=== PATIENT | male | born 1985 | race Caucasian/White ===

== ENCOUNTER → 2020-05-22 11:14 | Outpatient (BNVA) | payer OTHER, SELFPAY | PROVIDERS: PCP Internal Medicine; Visit Provider Surgery | DX: K64.8 Other hemorrhoids (principal); K64.4 Residual hemorrhoidal skin tags; M62.08 Separation of muscle (nontraumatic), other site | CPT/HCPCS: 46600; 99203 ==

== ENCOUNTER → 2020-07-30 10:09 | Outpatient (BNVA) | payer OTHER, SELFPAY | PROVIDERS: PCP Internal Medicine; Visit Provider Internal Medicine | DX: E88.01 Alpha-1-antitrypsin deficiency (principal); F17.200 Nicotine dependence, unspecified, uncomplicated | CPT/HCPCS: 99212 ==

== ENCOUNTER 2022-05-13 11:11 | Outpatient (REF) | payer OTHER, SELFPAY ==
[2022-05-13 13:44] LABS: Appearance Urine Clear; Color Urine Yellow; Glucose Urine UA Negative (Negative); Leukocyte Esterase Urine Negative (Negative); Nitrite Urine Negative (Negative); Specific Gravity - Urine 1.025 (1.005-1.025); Urine Blood Negative (Negative); Urine Ketones Negative (Negative); Urine Protein Negative (Neg-Trace)
[2022-05-13 18:23] LABS: CT PCR NOT DETECTED (Not Detect.); NG PCR NOT DETECTED (Not Detect.)
== END 2022-05-13 11:12 | disposition home or self-care (01) ==
LOC: HO.10HDL 11:11
PROVIDERS: Visit Provider Internal Medicine
DX: R30.0 Dysuria (principal); Z11.8 Encounter for screening for other infectious and parasitic diseases; Z11.3 Encounter for screening for infections with a predominantly sexual mode of transmission
CPT/HCPCS: 81003; 87086; 87491; 87591

== ENCOUNTER 2022-05-14 10:53 | Outpatient (REF) | payer OTHER, SELFPAY ==
[2022-05-14 14:37] LABS: Syphilis Screen Nonreactive (Nonreactive)
[2022-05-17 08:18] LABS: HIV AB/AG Nonreactive (Nonreactive); HIV Num 1 0.06 S/CO (0.00-0.99); ~Hepatitis C Antibody Nonreactive (Nonreactive)
== END 2022-05-14 10:54 | disposition home or self-care (01) ==
LOC: HO.10HDL 10:53
PROVIDERS: Visit Provider Internal Medicine
DX: Z11.3 Encounter for screening for infections with a predominantly sexual mode of transmission (principal); Z11.4 Encounter for screening for human immunodeficiency virus [HIV]
CPT/HCPCS: 36415; 86780; 86803; 87389

== ENCOUNTER 2023-12-22 13:34 | Outpatient (AMB) | payer OTHER, SELFPAY ==
[2023-12-22 13:39] VITALS: PULSE 74; O2SAT 98; BMI 27.4
--- NOTE | 2023-12-22 13:39 | A.OFFVIS_ITS ---
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 The patient is a 30-year-old gentleman with a known history of alpha-1 antitrypsin deficiency. Apparently his mom had alpha-1 antitrypsin deficiency and developed liver failure. She was being taken care of [facility]. She developed liver cirrhosis and she ended up dying. The patient unfortunately has been smoking cigarettes and also smoking marijuana. He smokes about half a pack a day. He has been having increasing shortness of breath. Sometimes he also has some nagging discomfort on his left lung. He is very concerned about his history of alpha-1 trypsin and he is concerned that he is developing progressive disease. He denies any fevers or chills or night sweats. The patient did have pulmonary function studies back in 2019 which I personally reviewed demonstrating no evidence of any restrictive nor obstructive ventilatory defects. He also had a chest for back in 2019 which was completely normal. Patient also had alpha-1 levels checked and they were 74. Which are low. The patient otherwise is without any other complaints. We did talk about smoking. He understands that he likely has partially functioning gene. Therefore, he still making protein. Is low but may be adequate. Currently stressing the system because of smoking. We will check his genotype at this time. We also did talk about alpha-1 augmentation therapy. The patient may be a candidate for this if his levels continued drop or stay low. In the meantime we are going to work on smoking cessation. He is willing to try Chantix. He will try Chantix and monitor closely for any depression. The patient will undergo PFTs and a chest x-ray and will follow-up. In the meantime he is developing episodes of bronchospasms so therefore rescue inhaler may be warranted. [facility] Medical History (Updated 12/22/23 @ 21:28 by Agustin Ochoa MD) AAT ([id number]) deficiency Smoker Diastasis recti Internal and external prolapsed hemorrhoids Social History Alcohol intake: current Alcohol intake frequency: holidays/special occasions only Review of Systems Const Denies fever(s) Eyes Reports no additional complaints ENT Reports no additional complaints Card Denies chest pain and Reports dyspnea on exertion Resp Reports cough, Reports dyspnea on exertion and Reports wheezing GI Reports no additional complaints Musc Reports no additional complaints Skin/Breast Denies rash Neuro Reports no additional complaints Rboert/Lymph Denies easy bleeding, Denies easy bruising and Denies lymphadenopathy Aller/Immun Reports wheezing Physical Exam Vital Signs: Last Vital Signs Pulse 74 12/22/23 13:39 Pulse Ox 98 12/22/23 13:39 Oxygen Delivery Method Room Air 12/22/23 13:39 BMI result Body Mass Index 27.4 Const General: comfortable Orientation/consciousness: patient oriented x3 HEENT Head: Yes normocephalic Neck Neck: Yes supple Chest Chest palpation & inspection: normal inspection of the chest Resp Effort & Inspection: normal respiratory effort Auscultation: clear to auscultation bilaterally Cardio Heart sounds: S1 normal heart sound present and S2 normal heart sound present GI Palpation (GI): Soft to palpation Skin General skin exam: no rashes or lesions noted Neuro General: patient oriented x3 Extrem General: Yes no clubbing, cyanosis or edema Assessment & Plan Assessment & Plan (1) AAT ([id number]) deficiency: Code(s): E88.01 - Szrnf-1-fhavekrurin deficiency Category: Medical (2) Smoker: Code(s): F17.200 - Nicotine dependence, unspecified, uncomplicated Category: Social Hx Plan start MELANIA as needed start Chantix PFTs CXR Requested A1A genotype and levels F/U 2-3 months Orders: Orders XR chest 2V Today E88.01 - Sulsj-9-dughbrhnpyx deficiency PFT pulmonary function test Today E88.01 - Wblzf-0-miwcgpweept deficiency Medications: New albuterol sulfate 90 mcg/actuation 2 inhalations inhalation Q6H 30 days PRN 18 grams 12RF shortness of breath or wheezing J44.9 - Chronic obstructive pulmonary disease, unspecified varenicline (Chantix Starting Month Box) PO PER PKG DIR 42 ea 0RF Coding Level of Care Code New Pt Level 4 (71826) Diagnoses AAT (cmuai-[id number]) deficiency E88.01 Smoker F17.200 Time Spent (min) 40
== END 2023-12-22 14:14 | disposition home or self-care (01) ==
PROVIDERS: PCP Internal Medicine; Referring Provider Internal Medicine; Visit Provider Hospitalist
DX: E88.01 Alpha-1-antitrypsin deficiency (principal); F17.200 Nicotine dependence, unspecified, uncomplicated
CPT/HCPCS: 99204

== ENCOUNTER → 2023-12-22 13:34 | Outpatient (BNVA) | payer OTHER, SELFPAY | PROVIDERS: PCP Internal Medicine; Referring Provider Internal Medicine; Visit Provider Hospitalist | DX: E88.01 Alpha-1-antitrypsin deficiency (principal); F17.200 Nicotine dependence, unspecified, uncomplicated | CPT/HCPCS: 99202 ==